=== PATIENT | male | born 1995 | race Caucasian/White ===

== ENCOUNTER → 2018-06-11 | Outpatient (CLI) | payer BC ==
[~2018-06-11] MED LIST: GADOBUTROL 10 ML VIAL IVP ONE
== END ==
LOC: FIMAGING 12:51
PROVIDERS: ATTEND Physician Assistant Medical
DX: R40.20 Unspecified coma (principal); Z86.61 Personal history of infections of the central nervous system
CPT/HCPCS: A9585

== ENCOUNTER 2018-08-03 12:14 | Emergency (ER) | payer BC ==
--- NOTE | 2018-08-03 13:08 | EDPHY ---
H & P Stated Complaint: face lac Time Seen by Provider: 08/03/18 12:31 HPI/ROS: CHIEF COMPLAINT: Eyebrow laceration HISTORY OF PRESENT ILLNESS: Patient is a 23-year-old man with epilepsy who had a seizure today at home. He has laceration and bruising to his right eyebrow. No tongue injury. He denies headache or neck pain. He is here for sutures. Severity: Mild Modifying factors: Improving REVIEW OF SYSTEMS: Constitutional: denies: chills, fever, recent illness, recent injury EENTM: denies: blurred vision, double vision, nose congestion Respiratory: denies: cough, shortness of breath Cardiac: denies: chest pain, irregular heart rate, lightheadedness, palpitations Gastrointestinal/Abdominal: denies: abdominal pain, diarrhea, nausea, vomiting, blood streaked stools Genitourinary: denies: dysuria, frequency, hematuria, pain Musculoskeletal: denies: joint pain, muscle pain Skin: Right eyebrow laceration Neurological: denies: headache, numbness, paresthesia, tingling, dizziness, weakness Hematologic/Lymphatic: denies: blood clots, easy bleeding, easy bruising Immunologic/allergic: denies: HIV/AIDS, transplant 10 systems reviewed and negative except as noted EXAM: GENERAL: Well-appearing, well-nourished and in no acute distress. HEAD: Atraumatic, normocephalic. EYES: Pupils equal round and reactive to light, extraocular movements intact, sclera anicteric, conjunctiva are normal. ENT: TMs normal, nares patent, oropharynx clear without exudates. Moist mucous membranes. NECK: Normal range of motion, supple without lymphadenopathy or JVD. LUNGS: Breath sounds clear to auscultation bilaterally and equal. No wheezes rales or rhonchi. HEART: Regular rate and rhythm without murmurs, rubs or gallops. ABDOMEN: Soft, nontender, normoactive bowel sounds. No guarding, no rebound. No masses appreciated. BACK: No CVA tenderness, no spinal tenderness, step-offs or deformities EXTREMITIES: Normal range of motion, no pitting or edema. No clubbing or cyanosis. NEUROLOGICAL: Cranial nerves II through XII grossly intact. Normal speech, normal gait. 5/5 strength, normal movement in all extremities, normal sensation , normal reflexes PSYCH: Normal mood, normal affect. 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 surg-none - Social History Smoking Status: Never smoked Constitutional: Initial Vital Signs Temperature (C) 37.1 C 08/03/18 12:33 Heart Rate 78 08/03/18 12:33 Respiratory Rate 20 08/03/18 12:33 Blood Pressure 133/68 H 08/03/18 12:33 O2 Sat (%) 96 08/03/18 12:33 O2 Delivery Mode Room Air Allergies/Adverse Reactions: No Known Allergies Allergy (Verified 08/03/18 12:31) Home Medications: Medication Instructions Recorded No Medications [No Meds] 04/23/13 Keppra 08/03/18 Medical Decision Making Procedures: Procedure: Laceration repair. Verbal consent was obtained from the patient. The 2 cm right eyebrow laceration was anesthetized with 1% lidocaine with epi and bicarbonate locally infiltrated. The wound was irrigated copiously according to protocol, draped and explored to its base. It was approximately 1/2 cm deep. There were no deep structures involved. No tendon, nerve, or vascular injury was identified when explored. No foreign body was identified. The wound was repaired with 5 point no fast-absorbing gut, for sutures, interrupted. The wound repair was simple without wound margin revisement or multiple flap alignment. The procedure was performed by myself. A dressing was then placed with sterile gauze. ED Course/Re-evaluation: Patient tolerated laceration repair well. He and his parents no not concerned about the seizure or further workup for epilepsy. He is on Keppra and they have been gradually increasing his dose recently. They are happy with the outcome and eager to go home. Discussed suture care and steps to take if they do not dissolve. Differential Diagnosis: Partial list of the Differential diagnosis considered include but were not limited to; laceration, the contusion and although unlikely based on the history and physical exam, I also considered foreign body, head injury, neck and. Departure - Departure Disposition: Home, Routine, Self-Care Clinical Impression: Laceration Condition: Fair Instructions: Laceration (ED), Care For Your Absorbable Stitches (ED) Referrals: Himanshu Lawrence MD [Primary Care Provider] - As per Instructions
[2018-08-03 13:21] VITALS: BP 128/74
== END 2018-08-03 13:24 | disposition home or self-care (01) ==
LOC: CED 12:14
PROC: 08QNXZZ Repair Right Upper Eyelid, External Approach (ICD-10-PCS; principal; 2018-08-03)
DX: S01.111A Laceration without foreign body of right eyelid and periocular area, initial encounter (principal); G40.909 Epilepsy, unspecified, not intractable, without status epilepticus; W22.8XXA Striking against or struck by other objects, initial encounter; Y92.009 Unspecified place in unspecified non-institutional (private) residence as the place of occurrence of the external cause
CPT/HCPCS: 99282-ER